=== PATIENT | male | born 2005 | race Two or more races ===

== ENCOUNTER 2025-04-24 23:05 | Emergency (ER) | payer MEDICAID, OTHER ==
[~2025-04-24] VITALS: Ht 160 cm; Wt 65.9 kg
[2025-04-24 23:42] VITALS: BP 130/77; PULSE 104; RESP 18; TEMP 97.9; O2SAT 100
[2025-04-25] MEDS ORDERED: HYDR25TA83 PO (00:42)
== END 2025-04-25 00:59 | disposition home or self-care (01) ==
LOC: EMS 23:07
DX: F41.0 Panic disorder [episodic paroxysmal anxiety] (principal); R20.0 Anesthesia of skin; Z63.4 Disappearance and death of family member; Z79.899 Other long term (current) drug therapy; Z88.5 Allergy status to narcotic agent
CPT/HCPCS: 93005; 99283